=== PATIENT | female | born 1985 | race Two or more races ===

== ENCOUNTER 2019-01-29 15:38 | Outpatient (CLI) | payer OTHER ==
[~2019-01-29 15:38] MED LIST: DICY20TA; INTESTINEX1 CA1; INTESTINEX1 CA1 PO; NECON1 TA1; ZANTAC150 MG PO
== END 2019-01-29 16:13 | disposition home or self-care (01) ==
LOC: RAD 501 15:38
DX: M25.562 Pain in left knee (principal); M25.572 Pain in left ankle and joints of left foot; M79.605 Pain in left leg

== ENCOUNTER 2019-02-19 17:12 | Outpatient (CLI) | payer OTHER | END 2019-02-19 17:28 | disposition home or self-care (01) | LOC: RAD 17:12 | DX: M79.605 Pain in left leg (principal) ==

== ENCOUNTER 2021-07-04 13:00 | Outpatient (CLI) | payer OTHER | END 2021-07-04 15:00 | disposition home or self-care (01) | LOC: ASH CLINIC 13:00 | PROVIDERS: ATTEND Emergency Medicine | DX: Z23 Encounter for immunization (principal); U07.1 COVID-19 ==

== ENCOUNTER 2022-06-28 12:49 | Emergency (ER) | payer OTHER ==
[~2022-06-28] VITALS: Ht 162.6 cm; Wt 94.3 kg
[2022-06-28] MEDS ORDERED: LEXAPRO20 MG (12:59)
[2022-06-28] MEDS ORDERED: VITAMIN D310 MC4 (13:00)
== END 2022-06-28 14:22 | disposition home or self-care (01) ==
LOC: ER 12:49
DX: S80.862A Insect bite (nonvenomous), left lower leg, initial encounter (principal); L50.9 Urticaria, unspecified